=== PATIENT | female | born 1955 | race Caucasian/White ===

== ENCOUNTER 2017-11-08 08:54 | Emergency (ER) | payer OTHER ==
[2017-11-08] MEDS ORDERED: Acetaminophen/Codeine 30-300mg Tablet ONE (09:17)
== END 2017-11-08 09:24 | disposition home or self-care (01) ==
LOC: SCSER 08:54
DX: H66.92 Otitis media, unspecified, left ear (principal); Z79.899 Other long term (current) drug therapy
CPT/HCPCS: 99283

== ENCOUNTER 2018-03-17 09:41 | Outpatient (CLI) | payer OTHER | END 2018-03-17 09:42 | disposition home or self-care (01) | LOC: BICMAMMO 09:41 | PROVIDERS: ATTEND Obstetrics & Gynecology | DX: Z12.31 Encounter for screening mammogram for malignant neoplasm of breast (principal); Z80.3 Family history of malignant neoplasm of breast | CPT/HCPCS: 77063; 77067 ==

== ENCOUNTER 2018-09-27 08:48 | Outpatient (CLI) | payer OTHER ==
--- NOTE | 2018-09-27 11:47 | MRI ---
MRI OF LEFT SHOULDER PERFORMED WITHOUT CONTRAST ENHANCEMENT: HISTORY: Left shoulder pain. FINDINGS: There are mild to moderate AC joint hypertrophic changes present. There is a low-grade interstitial more undersurface tear involving the supraspinatus tendon and a low -grade undersurface tear of the infraspinatus tendon insertion, more specifically more the anterior f ibers of the infraspinatus. The subscapularis muscle and tendon are intact and the biceps tendon is normal in position within the bicipital groove. There is a joint effusion present. There is some synovitis change and what appear to be some small a rticular bodies. There are arthritic changes of the glenohumeral joint space. Changes are mainly re lated to articular cartilage loss with some subchondral bony cystic change involving the anterior inf erior labrum. The labrum in this region, including the anterior inferior and inferior labrum is irre gular in appearance. IMPRESSION: 1. Low-grade undersurface tears of the supra- and infraspinatus tendons. 2. Moderate joint effusion. There appear to be some synovitis change and what appear to be some sma ll articular bodies. This is associated with arthritic changes of the glenohumeral joint space. Betsey nges are mainly related to articular cartilage loss involving the anterior inferior glenoid with asso ciated irregular appearance to the anterior inferior and inferior labrum suggesting some associated d egenerative tearing of the labrum. POS: [facility]
== END 2018-09-27 08:49 | disposition home or self-care (01) ==
LOC: MRI 08:48
PROVIDERS: ATTEND Orthopaedic Surgery
DX: M25.512 Pain in left shoulder (principal); M75.102 Unspecified rotator cuff tear or rupture of left shoulder, not specified as traumatic; M25.412 Effusion, left shoulder; M19.012 Primary osteoarthritis, left shoulder

== ENCOUNTER 2018-10-13 10:56 | Outpatient (CLI) | payer OTHER ==
[2018-10-13 11:52] LABS: #Basophils 0.1 thou/uL (0.0-0.2); #Eosinphils 0.2 thou/uL (0.0-0.7); #Lymphocytes 2.8 thou/uL (1.20-3.40); #Monocytes 0.4 thou/uL (0.11-0.59); %Basophils 1.1 % (0.0-1.0); %Eosinophils 2.5 % (0.0-10.0); %Lymphocytes 33.2 % (21.0-51.0); %Neutrophils 58.3 % (42.0-75.0); Hemoglobin 13.2 g/dL (12.0-16.0); Mean Corpuscular HGB CONC 31.7 g/dL (32.0-36.0); Mean Corpuscular Hemoglobin 28.7 pg (27.0-31.0); Mean Corpuscular Volume 90.4 fL (78.0-98.0); Mean Platelet Volume 9.3 fL (7.4-10.4); Platelet Count 258 thou/uL (130-400); RBC Distribution Width 13.4 % (11.5-14.5); Red Blood Cell (RBC) Count 4.59 mill/uL (4.20-5.40); White Blood Cell (WBC) Count 8.5 thou/uL (4.8-10.8)
[2018-10-13 12:08] LABS: PTT 32.6 SEC (22.9-36.1)
[2018-10-13 12:09] LABS: Prothrombin Time 12.9 SEC (12.0-14.7)
[2018-10-13 12:18] LABS: ALT (SGPT) 24 U/L (8-55); AST (SGOT) 22 U/L (5-34); Albumin 4.1 g/dL (3.4-4.8); Alkaline Phosphatase 75 U/L (40-150); Anion Gap 12 mmol/L (10-20); BUN (Urea Nitrogen) 20 mg/dL (9.8-20.1); Bilirubin, Total 0.2 mg/dL (0.2-1.2); Calc. Creatinine Clearance 0 mL/min (70-130); Calcium 9.7 mg/dL (7.8-10.44); Carbon Dioxide 24 mmol/L (23-31); Chloride 106 mmol/L (98-107); Estimated GFR-MDRD 80; Globulin 3.2 g/dL (2.4-3.5); Glucose 97 mg/dL (80-115); Potassium 4.3 mmol/L (3.5-5.1); Protein, Total 7.3 g/dL (6.0-8.3); Sodium 138 mmol/L (136-145)
== END 2018-10-13 10:57 | disposition home or self-care (01) ==
LOC: LABBT 10:56
PROVIDERS: ATTEND Internal Medicine Cardiovascular Disease
DX: Z01.812 Encounter for preprocedural laboratory examination (principal); R94.30 Abnormal result of cardiovascular function study, unspecified
CPT/HCPCS: 80053; 85025; 85610; 85730

== ENCOUNTER 2018-10-18 05:45 | Day surgery (SDC) | payer OTHER ==
[2018-10-13 10:59] VITALS: BMI 40.8
[2018-10-18 07:14] LABS: Cardiac Risk 1.9 (Less than 4.5)
[2018-10-18] MEDS ORDERED: Nitroglycerin 100MG/250ML BOT 250 ML ONE (08:01)
[2018-10-18] MEDS ORDERED: Heparin 10,000 UNITS/1 ML VIAL ONE (08:01)
[2018-10-18] MEDS ORDERED: Verapamil 5 MG/2 ML VIAL ONE (08:01)
[2018-10-18] MEDS ORDERED: Fentanyl 100 MCG/2 ML VIAL ONE (08:29)
[2018-10-18] MEDS ORDERED: Midazolam HCl 2 mg/2 ml Vial ONE (08:29)
[2018-10-18] MEDS ORDERED: Iopamidol 370 76% 100 ML VIAL ONE (12:50)
== END 2018-10-18 11:20 | disposition home or self-care (01) ==
LOC: CCL 05:45
PROVIDERS: ATTEND Internal Medicine Cardiovascular Disease
PROC: B2111ZZ Fluoroscopy of Multiple Coronary Arteries using Low Osmolar Contrast (ICD-10-PCS; principal; 2018-10-18)
DX: I25.10 Atherosclerotic heart disease of native coronary artery without angina pectoris (principal); C54.1 Malignant neoplasm of endometrium; M19.90 Unspecified osteoarthritis, unspecified site; Z79.82 Long term (current) use of aspirin; Z79.899 Other long term (current) drug therapy; Z79.1 Long term (current) use of non-steroidal anti-inflammatories (NSAID)
CPT/HCPCS: 36415; 80061; 93458; 99152; C1769; J1644; J2250; J3010

== ENCOUNTER 2019-02-08 10:14 | Outpatient (CLI) | payer OTHER ==
--- NOTE | 2019-02-08 13:02 | BD ---
Exam: DEXA Bone Density Indication: Post-menopausal, osteoporosis screening. Lumbar Spine: BMD (g/cm2) L1 0.915 T-Score: -0.7 Z-Score: -0.9 L2 1.085 T-Score: 0.5 Z-Score: 2.3 L3 1.239 T-Score: 1.4 Z-Score: 3.2 L4 1.112 T-Score: 0.5 Z-Score: 2.4 L1-L4 1.090 T-Score: 0.4 Z-Score: 2.1 Femoral Neck: 0.757 T-Score: -0.8 Z-Score: 0.7 Total Femur: 0.904 T-Score: -0.3 Z-Score: 0.9 Impression: Based on WHO criteria, the patient's bone mineral density is normal. The patient has a low risk for f racture. POS: [facility]
== END 2019-02-08 10:15 | disposition home or self-care (01) ==
LOC: BICMAMMO 10:14
PROVIDERS: ATTEND Family Medicine
DX: Z78.0 Asymptomatic menopausal state (principal)
CPT/HCPCS: 77080

== ENCOUNTER 2020-02-03 07:35 | Outpatient (CLI) | payer MEDICARE, OTHER ==
[2020-02-03 08:21] LABS: Estimated GFR-MDRD - POC Greater than 90
--- NOTE | 2020-02-03 09:03 | CT ---
CT OF THE ABDOMEN WITH IV AND ENTERIC CONTRAST: INDICATION: Concern for gastric ulcer due to chemical ingestion. COMPARISON: Prior CT of the chest, abdomen, and pelvis dated 07/09/2018. FINDINGS: There is postprocedural change of a prior gastroplasty. There is a very small hiatal hernia. No vis ible transmural ulceration is grossly evident in the decompressed stomach. No extraluminal extravasa tion of enteric contrast is present. No inflammatory stranding is seen involving the upper abdominal retroperitoneal or intraperitoneal fat. There is subsegmental atelectasis involving both lobes. No focal hepatic lesion is evident. The gallbladder, pancreas, and adrenal glands are normal-appearing. Spleen and kidneys appear within normal limits. Small cyst is seen along the inferior pole of the right kidney. There are moderate calcifications involving the abdominopelvic vasculature. Visualized aspects of the small and large bowel appear within normal limits. There is a normal appen tara in the right lower quadrant of the abdomen. There is scattered degenerative and osteoarthritic change. No definite acute osseous abnormality is evident. IMPRESSION: No acute abnormality. POS: [facility]
[2020-02-03] MEDS ORDERED: Iopamidol-370 76% 500 ML 1 ML ONE (09:12)
== END 2020-02-03 07:36 | disposition home or self-care (01) ==
LOC: BICCT 07:35
PROVIDERS: ATTEND Surgery
DX: K25.9 Gastric ulcer, unspecified as acute or chronic, without hemorrhage or perforation (principal)
CPT/HCPCS: 74160; 82565

== ENCOUNTER 2020-03-16 09:41 | Outpatient (CLI) | payer MEDICARE ==
--- NOTE | 2020-03-16 10:45 | MRI ---
EXAM: MRI left hip PROVIDED CLINICAL HISTORY: Pain COMPARISON: None FINDINGS: There is partial thickness interstitial tearing involving the left common hamstring tendon origin. Th e left hip flexor, abductor and adductor tendons appear intact. There is extensive articular cartilage absence involving the superior weightbearing portions of the l eft femoral-acetabular joint. There is a moderate left hip joint effusion. There is nondisplaced chondrolabral separation-type tearing involving the anterior superior acetabular labrum. The ligament um teres appears intact. Material of inhomogeneous signal intensity is seen within the inferomedial aspects of the left hip joint compatible with intra-articular bodies and/or synovitis. No focal concerning regional marrow or muscular signal abnormality apparent. The courses of the regio nal major neurovascular structures appear unremarkable. IMPRESSION: 1. Advanced left femoral-acetabular articular chondrosis with moderate joint effusion and intra-artic ular bodies/synovitis. 2. Nondisplaced anterior-superior acetabular labral tear. 3. Partial thickness interstitial tearing involving the left common hamstring tendon origin.
== END 2020-03-16 09:42 | disposition home or self-care (01) ==
LOC: MRI 09:41
PROVIDERS: ATTEND Orthopaedic Surgery
DX: M70.62 Trochanteric bursitis, left hip (principal); M25.452 Effusion, left hip; S73.102A Unspecified sprain of left hip, initial encounter; S76.012A Strain of muscle, fascia and tendon of left hip, initial encounter; M24.152 Other articular cartilage disorders, left hip; M65.9 Synovitis and tenosynovitis, unspecified

== ENCOUNTER 2020-05-25 06:54 | Outpatient (CLI) | payer MEDICARE, OTHER ==
[2020-05-25 14:08] LABS: INR-International Normal Ratio 0.9; Prothrombin Time 12.4 sec (12.0-14.7)
[2020-05-25 14:30] LABS: #Basophils 0.1 thou/uL (0.0-0.2); #Eosinphils 0.2 thou/uL (0.0-0.7); #Lymphocytes 3.2 thou/uL (1.20-3.40); #Monocytes 0.6 thou/uL (0.11-0.59); #Neutrophils 4.4 thou/uL (1.40-6.50); %Basophils 0.7 % (0.0-1.0); %Eosinophils 2.1 % (0.0-10.0); %Lymphocytes 37.5 % (21.0-51.0); %Monocytes 7.6 % (0.0-10.0); %Neutrophils 52.2 % (42.0-75.0); Hemoglobin 13.4 g/dL (12.0-16.0); Mean Corpuscular Hemoglobin 28.3 pg (27.0-31.0); Mean Corpuscular Volume 91.1 fL (78.0-98.0); Platelet Count 272 thou/uL (130-400); RBC Distribution Width 13.1 % (11.5-14.5); Red Blood Cell (RBC) Count 4.74 mill/uL (4.20-5.40); White Blood Cell (WBC) Count 8.4 thou/uL (4.8-10.8)
[2020-05-25 14:39] LABS: Anion Gap 13 mmol/L (10-20); BUN (Urea Nitrogen) 10 mg/dL (9.8-20.1); Calc. Creatinine Clearance 0 mL/min (70-130); Carbon Dioxide 25 mmol/L (23-31); Chloride 104 mmol/L (98-107); Estimated GFR-MDRD 85; Potassium 4.4 mmol/L (3.5-5.1); Sodium 138 mmol/L (136-145)
[2020-05-25 14:40] LABS: Calcium 9.2 mg/dL (7.8-10.44); Glucose 90 mg/dL (80-115)
[2020-05-25 14:45] LABS: Bacteria/HPF None Seen HPF (None Seen); Bilirubin Negative (Negative); Blood, Urine Negative (Negative); Clarity Clear (Clear); Glucose, Urine (Dipstick) Normal (Negative); Ketone, Urine Negative (Negative); Leukocyte 25 Leu/uL (Negative); Nitrite Negative (Negative); Protein, Urine (Dipstick) Negative (Neg-Trace); RBC/HPF 0-3 HPF (0-3); Specific Gravity, Urine 1.012 (1.002-1.036); Squamous Epithelial 0-3 HPF (0-3); Urobilinogen Normal mg/dL (Less than 2); WBC/HPF 0-3 HPF (0-3)
[2020-05-26 12:37] LABS: SARS-CoV-2 MS2 Positive; SARS-CoV-2 N Gene Negative; SARS-CoV-2 S Gene Negative; SARS-CoV-2 by NAA Not Detected (NotDetected); SARS-CoV-2 orf1ab Negative
== END 2020-05-25 06:55 | disposition home or self-care (01) ==
LOC: LABBT 06:54
PROVIDERS: ATTEND Orthopaedic Surgery
DX: Z01.812 Encounter for preprocedural laboratory examination (principal); Z11.59 Encounter for screening for other viral diseases; M16.12 Unilateral primary osteoarthritis, left hip
CPT/HCPCS: 80048; 81001; 85025; 85610; 87081; U0003; 87635

== ENCOUNTER 2020-05-29 07:00 | Inpatient (IN) | payer MEDICARE ==
[2020-05-23 15:53] VITALS: BMI 41.1
[2020-05-29] MEDS ORDERED: Midazolam HCl 2 mg/2 ml Vial ONE (07:55)
[2020-05-29] MEDS ORDERED: Fentanyl 100 MCG/2 ML VIAL ONE ×3 (07:55→11:29)
[2020-05-29] MEDS ORDERED: Sodium Chloride 0.9% 100 ML ONE (08:02)
[2020-05-29] MEDS ORDERED: Tranexamic Acid 1,000 MG/10 ML VIAL ONE (08:02)
[2020-05-29] MEDS ORDERED: Vancomycin 1.5 GRAM/300 ML BAG ONE (08:02)
[2020-05-29] MEDS ORDERED: Bupivacaine 0.25% 10 ML VIAL EPIDURAL PRN (08:30)
[2020-05-29] MEDS ORDERED: Promethazine HCl 25 MG SUPP PR PRN (08:30)
[2020-05-29] MEDS ORDERED: Promethazine HCl 25 MG/ML VIAL IM PRN ×2 (08:30→09:34)
[2020-05-29] MEDS ORDERED: Zolpidem Tartrate 5 MG TAB PO PRN ×2 (08:30→09:34)
[2020-05-29] MEDS ORDERED: Ondansetron PF 4 MG/2 ML Vial IVP PRN ×2 (08:30→09:34)
[2020-05-29] MEDS ORDERED: diphenhydrAMINE 50 MG/ML VIAL IVP PRN (08:30)
[2020-05-29] MEDS ORDERED: Naloxone HCl 0.4 mg/ml Vial IV PRN (08:30)
[2020-05-29] MEDS ORDERED: Hydrocerin (Eucerin) Cream 120 gm Jar TOP PRN (08:30)
[2020-05-29] MEDS ORDERED: traMADol HCl 50 MG TAB PO PRN (08:30)
[2020-05-29] MEDS ORDERED: Naloxone HCl 0.4 mg/ml Vial IVP PRN (08:30)
[2020-05-29] MEDS ORDERED: diphenhydrAMINE 50 MG/ML VIAL IM PRN (08:30)
[2020-05-29] MEDS ORDERED: HYDROcodone/Acetaminophen 5/325 mg Tablet PO PRN (08:30)
[2020-05-29] MEDS ORDERED: Fentanyl 100 MCG/2 ML VIAL SLOW IVP PRN ×2 (09:34)
[2020-05-29] MEDS ORDERED: Acetaminophen 325 MG TAB PO PRN (09:34)
[2020-05-29] MEDS ORDERED: diphenhydrAMINE 25 MG CAP PO PRN (09:34)
[2020-05-29] MEDS ORDERED: HYDROcodone/Acetaminophen 10/325 mg Tablet PO PRN ×2 (09:34)
[2020-05-29] MEDS ORDERED: PROPOFOL 200 MG/20 ML VIAL ONE (10:25)
[2020-05-29] MEDS ORDERED: Rocuronium Bromide 10 MG/ML (10ML VIAL) ONE (10:25)
[2020-05-29] MEDS ORDERED: Lidocaine 1% PF 5 ML VIAL ONE (10:25)
[2020-05-29] MEDS ORDERED: Ketorolac Tromethamine 30 MG/ML VIAL ONE (10:25)
[2020-05-29] MEDS ORDERED: Ondansetron PF 4 MG/2 ML Vial ONE (10:25)
[2020-05-29] MEDS ORDERED: EPHEDRINE 25 MG/5 ML SYRINGE ONE (10:25)
[2020-05-29] MEDS ORDERED: Bupivacaine/Epinephrine 0.25% 30 ML VIAL ONE (10:48)
[2020-05-29] MEDS ORDERED: Metoprolol Tartrate 5 MG/5 ML VIAL ONE (11:32)
[2020-05-29] MEDS ORDERED: Promethazine HCl 25 MG/ML VIAL ONE (11:35)
--- NOTE | 2020-05-29 11:55 | OP ---
DATE OF PROCEDURE: 05/29/2020 TITLE OF PROCEDURE: Left total hip arthroplasty using a Zohra Accolade II #5 stem, +2.5 ceramic head, 52 mm Trident II cup, 36 mm X3 liner. GOSPEL WORKER: oDminic Faye PA-C BLOOD LOSS: 200. SPECIMENS: None. DRAINS: None. COMPLICATIONS: None. PROCEDURE IN DETAIL: After informed consent was obtained in the preoperative holding area, the patient was taken to the operative suite where general anesthesia was induced. The patient was then positioned in the lateral decubitus position. The hip was then prepped and draped in usual sterile fashion. The patient received preoperative antibiotics. Prior to incision, time-out was called and all members of the surgical team agreed upon site, surgeon, and patient. After this, a longitudinal incision was made directly over the trochanter, noted by palpation extending 2 fingerbreadths above and below the trochanter. The deeper subcutaneous layer was undermined with Bovie electrocautery. The iliotibial band was encountered and incised sharply and the plane below this was developed bluntly. A Charnley retractor was placed to hold this opened. The lateral aspect of the trochanter and the abductor muscles were encountered and then reflected anteriorly off the trochanter using Bovie electrocautery. Once this was completed, the anterior capsule was then encountered and identified and copious capsulotomy was carried out, exposing the femoral neck and head. Dislocation maneuver was then performed and an in situ provisional neck cut was then made using the oscillating saw. Attention was then turned to acetabular preparation and sequential reaming was carried out up to the appropriate diameter. A trial was then malleted into place with good firm resistance and no pullout. The permanent acetabular shell was then malleted squarely into place, as was the appropriate liner. Once completed, the wound was copiously irrigated and attention was then turned to femoral preparation. Flexion and external rotation were performed of the exposed thigh and femoral elevators were then placed at the proximal aspect of the wound. Canal finder was used to establish the length of the canal and sequential reaming was carried out, followed by broaching. Once the appropriate stability was established with the trial broaches with flexion, extension and rotational stability, we did trial with neutral and 2 mm offset incremental necks. Once the appropriate size was decided upon, with good stability noted with flexion, extension, internal and external rotation and shuck being negative, we removed the femoral trial broach and malletted into place the permanent prosthesis with good firm fit, which was also stable to rotation. Again, the hip felt very stable to flexion, extension, internal and external rotation. Leg lengths appeared near anatomic clinically and we were quite happy with prosthesis placement. Copious irrigation was then carried out through the entirety of the wound. Primary closure of the abductors was accomplished with interrupted #2 Vicryl [id number] stitches and the IT band was then closed with interrupted #2 Vicryl, oversewn with a #2 running barbed Quill stitch. Subcutaneous fascia was closed with running barbed Quill stitch and a subcuticular Monocryl barbed Quill stitch was used for skin closure and augmented with skin cement. A sterile dressing was applied. The procedure was terminated without any complication. All counts were correct. The patient was awakened in the operative suite and taken to the recovery room in stable condition. Job ID: [id number]
--- NOTE | 2020-05-29 12:23 | RAD ---
EXAM: 2 views of the left hip HISTORY: Left hip arthroplasty COMPARISON: None FINDINGS: 2 views of the left hip shows the patient is status post left hip arthroplasty without nikhil hardware lucency or fracture. Air in the soft tissues is from recent surgery. IMPRESSION: Status post left hip arthroplasty without evidence of complication.
[2020-05-29] MEDS: Ketorolac Tromethamine 30 MG/ML VIAL IVP SCH ×3 (13:02→23:40)
[2020-05-29] MEDS: Sodium Chloride 0.9% 1,000 ML IV SCH ×2 (13:04→18:00)
[2020-05-29] MEDS: diphenhydrAMINE 25 MG CAP PO PRN ×2 (15:40→19:34)
[2020-05-29] MEDS: CEFAZOLIN 2 GM in Premix Bag 1 BAG IVPB SCH (17:20)
[2020-05-29] MEDS: Atorvastatin Calcium 10 MG TAB PO SCH (19:30)
[2020-05-29] MEDS: Aspirin 81 mg Enteric Coated Tablet PO SCH (19:30)
[2020-05-29] MEDS: HYDROcodone/Acetaminophen 5/325 mg Tablet PO PRN (20:59)
[2020-05-29] MEDS ORDERED: Aspirin 81 mg Enteric Coated Tablet PO SCH (21:00)
[2020-05-29] MEDS: Zolpidem Tartrate 5 MG TAB PO SCH (21:01)
[2020-05-30] MEDS: CEFAZOLIN 2 GM in Premix Bag 1 BAG IVPB SCH (03:08)
[2020-05-30] MEDS: HYDROcodone/Acetaminophen 5/325 mg Tablet PO PRN ×4 (03:50→17:17)
[2020-05-30] MEDS: fentaNYL Citrate/PF 500 MCG, Bupivacaine 10 ML in Sodium Chloride 0.9% 80 ML EPIDURAL SCH ×2 (04:23→17:25)
[2020-05-30] MEDS: Sodium Chloride 0.9% 1,000 ML IV SCH ×3 (04:58→21:17)
[2020-05-30 05:21] LABS: Hemoglobin 11.2 g/dL (12.0-16.0); Mean Corpuscular HGB CONC 33.1 g/dL (32.0-36.0); Mean Corpuscular Hemoglobin 30.5 pg (27.0-31.0); Mean Corpuscular Volume 92.2 fL (78.0-98.0); Platelet Count 217 thou/uL (130-400); RBC Distribution Width 12.8 % (11.5-14.5); Red Blood Cell (RBC) Count 3.67 mill/uL (4.20-5.40); White Blood Cell (WBC) Count 10.3 thou/uL (4.8-10.8)
[2020-05-30] MEDS: Ketorolac Tromethamine 30 MG/ML VIAL IVP SCH ×4 (06:11→23:34)
[2020-05-30] MEDS: diphenhydrAMINE 25 MG CAP PO PRN ×2 (08:38→20:05)
[2020-05-30] MEDS: Ferrous Gluconate 324 MG TAB PO SCH ×2 (08:39→17:16)
[2020-05-30] MEDS: Multivitamin W/ Minerals 1 TAB PO SCH (08:39)
[2020-05-30] MEDS: Polyethylene Glycol 3350 17 GM Packet PO SCH (08:39)
[2020-05-30] MEDS: Aspirin 81 mg Enteric Coated Tablet PO SCH ×2 (08:39→20:05)
[2020-05-30] MEDS: Senokot S 8.6-50 MG TAB PO SCH ×2 (08:39→20:05)
[2020-05-30] MEDS ORDERED: Cholecalciferol 10 MCG/ML (Vitamin D3) 50 ML BOT PO SCH (09:00)
--- NOTE | 2020-05-30 12:11 | PRG ---
DATE OF SERVICE: 05/30/2020 SUBJECTIVE: Delmy is a 65-year-old female, postop day 1 from a left total hip arthroplasty. Doing relatively well. She has a little bit of discomfort, but this is tolerable and manageable. OBJECTIVE: VITAL SIGNS: Temperature 98.3, pulse 83, respiratory rate 18, blood pressure is 145/63. GENERAL: She is alert and oriented to person, place, time, situation, responds appropriate with examiner. EXTREMITIES: There is no shortening or malrotation of the left lower extremity. She is neurovascularly intact. LABORATORY DATA: Hemoglobin and hematocrit 11.2 and 33.9. IMPRESSION: A 65-year-old female, postop day 1, left total hip arthroplasty, doing relatively well. PLAN: Continue current care. Expected discharge home tomorrow. Job ID: [id number]
[2020-05-30] MEDS: traMADol HCl 50 MG TAB PO PRN ×2 (14:12→20:05)
[2020-05-30] MEDS: Atorvastatin Calcium 10 MG TAB PO SCH (20:05)
[2020-05-30] MEDS: Zolpidem Tartrate 5 MG TAB PO SCH (20:06)
[2020-05-31] MEDS: HYDROcodone/Acetaminophen 5/325 mg Tablet PO PRN (04:02)
[2020-05-31] MEDS: diphenhydrAMINE 25 MG CAP PO PRN (04:02)
[2020-05-31] MEDS: Ketorolac Tromethamine 30 MG/ML VIAL IVP SCH (06:03)
[2020-05-31] MEDS: traMADol HCl 50 MG TAB PO PRN ×2 (07:04→14:16)
[2020-05-31] MEDS ORDERED: Calcium Acetate 667 MG CAP ONE (07:56)
[2020-05-31 08:25] VITALS: BP 131/60; TEMP 98.5
[2020-05-31] MEDS: Ferrous Gluconate 324 MG TAB PO SCH (08:59)
[2020-05-31] MEDS: Aspirin 81 mg Enteric Coated Tablet PO SCH (08:59)
[2020-05-31] MEDS: Senokot S 8.6-50 MG TAB PO SCH (09:00)
[2020-05-31] MEDS: Multivitamin W/ Minerals 1 TAB PO SCH (09:00)
[2020-05-31] MEDS: Polyethylene Glycol 3350 17 GM Packet PO SCH (09:00)
[2020-05-31] MEDS ORDERED: HYDROcodone/Acetaminophen 10/325 mg Tablet PO PRN (09:05)
[2020-05-31] MEDS: HYDROcodone/Acetaminophen 10/325 mg Tablet PO PRN ×2 (09:07→13:02)
[2020-05-31] MEDS: Sodium Chloride 0.9% 1,000 ML IV SCH (11:33)
== END 2020-05-31 14:24 | disposition home or self-care (01) | DRG 470 ==
LOC: SDC 07:00 → SJJU 12:50
PROVIDERS: ADMIT Orthopaedic Surgery; ATTEND Orthopaedic Surgery
PROC: 0SRB039 Replacement of Left Hip Joint with Ceramic Synthetic Substitute, Cemented, Open Approach (ICD-10-PCS; principal; 2020-05-29)
DX: M16.12 Unilateral primary osteoarthritis, left hip (principal); I10 Essential (primary) hypertension; I25.10 Atherosclerotic heart disease of native coronary artery without angina pectoris; E78.5 Hyperlipidemia, unspecified; K44.9 Diaphragmatic hernia without obstruction or gangrene; Z87.891 Personal history of nicotine dependence; Z79.899 Other long term (current) drug therapy; Z79.82 Long term (current) use of aspirin
CPT/HCPCS: 36415; 85027; 93005; 93010; J0690; J1885; J2250; J2405; J2550; J2704; J3010; J3370; J3490; Q0163

== ENCOUNTER 2021-06-11 09:48 | Outpatient (CLI) | payer MEDICARE | END 2021-06-11 09:49 | disposition home or self-care (01) | LOC: BICULT 09:48 | PROVIDERS: ATTEND Internal Medicine Cardiovascular Disease | DX: E04.2 Nontoxic multinodular goiter (principal) | CPT/HCPCS: 76536 ==

== ENCOUNTER 2021-08-27 10:25 | Outpatient (CLI) | payer MEDICARE | END 2021-08-27 10:26 | disposition home or self-care (01) | LOC: BICMAMMO 10:25 | PROVIDERS: ATTEND Family Medicine | DX: Z13.820 Encounter for screening for osteoporosis (principal); Z78.0 Asymptomatic menopausal state; M85.851 Other specified disorders of bone density and structure, right thigh | CPT/HCPCS: 77080 ==

== ENCOUNTER 2024-11-25 22:41 | Emergency (ER) | payer MEDICARE | END 2024-11-26 01:40 | disposition home or self-care (01) | LOC: ERS 22:41 | DX: H11.32 Conjunctival hemorrhage, left eye (principal); I48.91 Unspecified atrial fibrillation; Z55.6 Problems related to health literacy; Z79.01 Long term (current) use of anticoagulants | CPT/HCPCS: 99283 ==